=== PATIENT | female | born 1950 | race Caucasian/White ===

== ENCOUNTER → 2017-09-08 14:31 | Outpatient (CLI) | payer MEDICARE, SELFPAY | PROVIDERS: Family Provider Family Medicine; PCP Family Medicine; Visit Provider Family Medicine | DX: N39.0 Urinary tract infection, site not specified (principal) | CPT/HCPCS: 87086; 87088 ==

== ENCOUNTER 2017-10-09 05:16 | Emergency (ER) | payer MEDICARE, SELFPAY ==
[2017-10-09 05:17] VITALS: BP 166/90; PULSE 81; RESP 20; TEMP 36.7; O2SAT 99; BMI 30.7
--- NOTE | 2017-10-09 05:22 | CT_ITS ---
STUDY: CT ABDOMEN AND PELVIS WITHOUT CONTRAST REASON FOR EXAM: Female, 67 years old. Nausea and vomiting. Emesis for one day. History of gastroparesis. RADIATION DOSAGE (If Supplied By Facility): CTDIvol = ( 9.30 ) mGy, DLP = ( 478.66 ) mGycm TECHNIQUE: Transaxial images were obtained from the dome of the diaphragm to the symphysis pubis without oral contrast, and without intravenous contrast. Sagittal and coronal images were reconstructed. Individualized dose optimization techniques were used for this CT. COMPARISON: None. FINDINGS: There is a small emphysematous bulla in the visualized right lower lobe. The visualized portions of the heart are within normal limits. There is decreased attenuation of the liver consistent with steatosis. There are surgical clips in the gallbladder fossa consistent with a prior cholecystectomy. Normal spleen. Normal pancreas. Normal bilateral adrenal glands. Normal right kidney. Normal left kidney. There is a small hiatal hernia. As seen on axial images 12-22, there is a 2.2 cm soft tissue structure within the hiatal hernia which might represent a prominent fold or a polypoid mass. The remainder of the stomach is grossly normal in appearance, with no abnormal distention. Normal small intestine. Normal colon. There is non-visualization of the appendix. There is no evidence for appendicitis. There is diffuse atherosclerotic calcification of the abdominal aorta, without a demonstrated aneurysm. Normal inferior vena cava. Normal retroperitoneum. Normal urinary bladder. Normal abdominal wall. There are mild degenerative changes of the visualized lumbar spine. CT/Abdomen/Pelvis without Cont IMPRESSION: Small hiatal hernia. Thickened rugal folds versus polypoid mass in the herniated portion of the stomach. Suggest upper endoscopy for further evaluation. Previous cholecystectomy. Fatty liver. Atherosclerosis. No evidence for bowel obstruction or ileus. No evidence for appendicitis or diverticulitis. Electronically Signed: Thuan Hathaway MD at 7:07 EDT , Service support ,
--- NOTE | 2017-10-09 05:24 | ED.DCSUM_ITS ---
- ER Visit Summary Date of Service: 10/09/17 Chief Complaint: Vomiting History of Present Illness: The patient is a 67 F who complains of vomiting. This started yesterday. She has vomited multiple times at home. She contributed to her history of gastroparesis. She also complains of some epigastric abdominal pain. It is aching in nature. She denies diarrhea or urinary symptoms. She has not had a fever. She states that she normally takes promethazine, lorazepam and Percocet for her gastroparesis has not taken the promethazine because she planned on going to work today. She had a colonoscopy palpated in the last 6 months which showed no acute abnormalities. She has been seeing a surgeon about her gastroparesis but he referred her to GI doctor at a larger facility because he was unable to find a cause of her symptoms. Physical Examination: Vital signs reviewed. HEENT exam unremarkable. Heart is regular rate and rhythm without murmurs. Lungs are clear to auscultation. Abdomen is soft with tenderness in the epigastric area. Extremities reveal no edema. Skin exam normal. Neurologic exam normal. Test Results: Labs unremarkable except for WBC 12.3 Emergency Department Course and Treatment: Patient was given normal saline and phenergan. She complained of dizziness so she was given meclizine as well. Treatment Plan: DC to home to use home medications. This is likely a flare of her gastroparesis Disposition: Discharge Impression: Vomiting, Dizziness This note was generated with [employer] dictation software. It may contain incorrect words, spelling, and punctuation that were not noted in review of the chart prior to signing ED Disposition - Plan for ED Patient: Disposition: Home or Assisted Living Chief Complaint: Nausea/Vomiting Instructions: ED Nausea Vomiting Prescriptions: Meclizine HCl [Antivert] 25 mg PO TID PRN PRN #20 tab PRN Reason: Dizziness Referrals: Nils Esparza MD [Primary Care Provider] -
[2017-10-09] MEDS: 0.9% Normal Saline 1,000 ML 1000 ML IV (05:27)
[2017-10-09] MEDS: DiphenhydrAMINE 50 MG/ML Syringe 25 MG IV (05:28)
[2017-10-09] MEDS: proMETHazine 25 MG/ML Syringe 12.5 MG IV (05:30)
[2017-10-09 05:31] LABS: Absolute Lymphocyte Count 2.07 X10^3/ul (0.83-4.51); Absolute Neutrophil Count 9.3 X10^3/uL (2.0-7.7); Basophil# 0.05 X10^3/uL; Basophil% 0.4 % (0-1); Eosinophil# 0.11 X10^3/uL; Eosinophils% 0.9 % (0-5); Lymphocyte # 2.07 X10^3/ul (4.0); Lymphocyte % 16.8 % (19-41); Mean Corp Hgb Conc 34.9 g/gl (32-36); Mean Corpuscular Hgb 32.7 pg (27.0-32.0); Mean Corpuscular Volume 93.7 fL (81-99); Mean Platelet Vol. 9.9 fl (6.2-12.0); Monocyte# 0.75 X10^3/uL; Monocyte% 6.1 % (0-10); Neutrophil # 9.32 X10^3/uL (2.7-7.7); Neutrophil % 75.6 % (47-70); Platelet Count 283 K/mm3 (150-450); RBC Distribution Width CV 12.2 % (11.6-14.6); RBC Distribution Width SD 41.3 fl (35.1-43.9); Red Blood Count 4.59 M/mm3 (4.2-5.4); White Blood Count 12.3 K/mm3 (4.4-11.0)
[2017-10-09 05:33] LABS: POSITIVE COUNT NO; POSITIVE DIFFERENTIAL NO; POSITIVE MORPHOLOGY NO
[2017-10-09 06:00] LABS: ALB/GLOB Ratio 1.1 RATIO (0.9-2.4); AST(SGOT) 26 U/L (15-37); Alanine Aminotransfer ALT/SGPT 32 U/L (13-56); Alkaline Phosphatase 143 U/L (45-117); Anion Gap 10 (5-15); BUN 9 mg/dL (7-18); BUN/Creat Ratio 12.2 RATIO (10-20); Calcium,Total 8.9 mg/dL (8.5-10.1); Chloride 104 mmol/L (98-107); Creatinine, Serum 0.74 mg/dL (0.55-1.02); EST Glomerular Filtration Rate 83 mL/min (>60); Est Glom Filt Rate - Afr Amer 101 mL/min (>60); Globulin 3.8 g/dL (2.2-4.2); Glucose 165 mg/dL (74-106); Lipase 96 U/L (73-393); Potassium 4.1 mmol/L (3.5-5.1); Protein, Total 7.8 g/dL (6.4-8.2); Sodium Level 140 mmol/L (136-145)
--- NOTE | 2017-10-09 06:36 | ED.DEP ---
ED Disposition - Plan for ED Patient: Disposition: Home or Assisted Living Chief Complaint: Nausea/Vomiting Instructions: ED Nausea Vomiting Referrals: Nils Esparza MD [Primary Care Provider] -
--- NOTE | 2017-10-09 06:53 | NURSING ---
no old ekgs
[2017-10-09] MEDS: Meclizine 12.5 MG Tablet 25 MG PO (07:14)
--- NOTE | 2017-10-09 07:32 | ED.DEP ---
ED Disposition - Plan for ED Patient: Disposition: Home or Assisted Living Chief Complaint: Nausea/Vomiting Instructions: ED Nausea Vomiting Prescriptions: Meclizine HCl [Antivert] 25 mg PO TID PRN PRN #20 tab PRN Reason: Dizziness Referrals: Nils Esparza MD [Primary Care Provider] -
== END 2017-10-09 07:47 | disposition home or self-care (01) ==
PROVIDERS: Emergency Medicine; Emergency Provider Emergency Medicine; Family Provider Family Medicine; PCP Family Medicine
DX: R11.2 Nausea with vomiting, unspecified (principal); R10.13 Epigastric pain; R42 Dizziness and giddiness; K31.84 Gastroparesis; K44.9 Diaphragmatic hernia without obstruction or gangrene; I10 Essential (primary) hypertension; Z79.899 Other long term (current) drug therapy
CPT/HCPCS: 74176; 80053; 83690; 85025; 96361; 96374; 96375; 99285; J7030; A4216

== ENCOUNTER 2018-01-15 12:14 | Emergency (ER) | payer MEDICARE, SELFPAY ==
[2018-01-15 12:15] VITALS: BP 173/101; PULSE 84; RESP 16; TEMP 36.6; O2SAT 98; BMI 29.9
--- NOTE | 2018-01-15 12:32 | RAD_ITS ---
STUDY: X-RAY - RIGHT WRIST REASON FOR EXAM: Female, 67 years old. Pain and soft tissue swelling following a fall. TECHNIQUE: 3 view(s) of the wrist were obtained. COMPARISON: None. FINDINGS: Normal visualized distal radius and ulna. Normal radiocarpal articulation. Normal distal radioulnar articulation. Normal carpal bones. Normal carpal articulations. Normal carpometacarpal articulation of the thumb. Normal second through fifth carpometacarpal articulations. Normal visualized metacarpal bones. Soft tissue swelling. RAD/Wrist min 3 Views IMPRESSION: Soft tissue swelling. Electronically Signed: Rene Kelly MD at 13:10 EDT Tel [phone], Service support ,
--- NOTE | 2018-01-15 13:19 | ED.VISSUMM ---
- ER Visit Summary Date of Service: 01/15/18 Chief Complaint: Wrist wrist injury History of Present Illness: The patient is a 67 F who states that today she sustained a fall causing abrasion to the right knee and pain in the right wrist. The patient denies any other injuries. Physical Examination: Afebrile vital signs stable There is superficial abrasions to the right knee. There is no swelling of the knee joint or ecchymosis. Left wrist shows swelling over the distal radius. There is painful supination and pronation. No obvious deformity. Neurovascular intact distally. Test Results: X-rays of the right wrist were negative for fracture. Emergency Department Course and Treatment: Patient be treated with a Velcro splint as a sprain. She will do local wound care to the knee. Follow-up 10-14 days if not improved. Impression: 1. Right wrist sprain 2. Right knee abrasion This note was generated with [employer] dictation software. It may contain incorrect words, spelling, and punctuation that were not noted in review of the chart prior to signing ED Disposition - Plan for ED Patient: Disposition: Home or Assisted Living Chief Complaint: Fall Instructions: ED Abrasion, ED Sprain Wrist Referrals: Nils Esaprza MD [Primary Care Provider] - 10-14 Days if not better
[2018-01-15 13:32] VITALS: BP 140/97; PULSE 82; RESP 18
== END 2018-01-15 13:39 | disposition home or self-care (01) ==
PROVIDERS: Emergency Provider Emergency Medicine; Family Provider Family Medicine; PCP Family Medicine
DX: S63.501A Unspecified sprain of right wrist, initial encounter (principal); S80.211A Abrasion, right knee, initial encounter; W19.XXXA Unspecified fall, initial encounter; Y93.9 Activity, unspecified; Y92.9 Unspecified place or not applicable; I10 Essential (primary) hypertension; Z79.899 Other long term (current) drug therapy
CPT/HCPCS: 73110; 99283

== ENCOUNTER → 2018-01-18 15:21 | Outpatient (CLI) | payer MEDICARE, SELFPAY ==
--- NOTE | 2018-01-18 15:24 | RAD_ITS ---
STUDY: X-RAY - RIGHT WRIST REASON FOR EXAM: Female, 67 years old. Worsening pain since recent fall. TECHNIQUE: 3 view(s) of the wrist were obtained. COMPARISON: None. FINDINGS: Normal visualized distal radius and ulna. Normal radiocarpal articulation. Normal distal radioulnar articulation. Normal carpal bones. Normal carpal articulations. Normal carpometacarpal articulation of the thumb. Normal second through fifth carpometacarpal articulations. Normal visualized metacarpal bones. Soft tissue swelling. RAD/Wrist min 3 Views IMPRESSION: Soft tissue swelling. No fracture is seen. Electronically Signed: Rene Kelly MD at 15:38 EDT Tel [phone], Service support ,
== END ==
PROVIDERS: Family Provider Family Medicine; PCP Family Medicine; Visit Provider Family Medicine
DX: S69.91XA Unspecified injury of right wrist, hand and finger(s), initial encounter (principal)
CPT/HCPCS: 73110

== ENCOUNTER → 2018-08-27 13:35 | Outpatient (CLI) | payer MEDICARE, SELFPAY ==
[2018-08-27 15:37] LABS: Absolute Lymphocyte Count 2.18 X10^3/ul (0.83-4.51); Absolute Neutrophil Count 2.7 X10^3/uL (2.0-7.7); Basophil# 0.02 X10^3/uL; Basophil% 0.4 % (0-1); Eosinophil# 0.17 X10^3/uL; Hematocrit 40.3 % (37-47); Hemoglobin 13.9 g/dl (12.0-15.0); Lymphocyte # 2.18 X10^3/ul (4.0); Lymphocyte % 39.1 % (19-41); Mean Corp Hgb Conc 34.5 g/gl (32-36); Mean Corpuscular Hgb 32.3 pg (27.0-32.0); Mean Corpuscular Volume 93.7 fL (81-99); Mean Platelet Vol. 10.8 fl (6.2-12.0); Monocyte# 0.52 X10^3/uL; Monocyte% 9.3 % (0-10); Neutrophil # 2.66 X10^3/uL (2.7-7.7); Neutrophil % 47.7 % (47-70); Platelet Count 274 K/mm3 (150-450); RBC Distribution Width CV 12.2 % (11.6-14.6); White Blood Count 5.6 K/mm3 (4.4-11.0)
[2018-08-27 15:38] LABS: POSITIVE COUNT NO; POSITIVE DIFFERENTIAL NO; POSITIVE MORPHOLOGY NO
[2018-08-27 16:14] LABS: AST(SGOT) 16 U/L (15-37); Alanine Aminotransfer ALT/SGPT 24 U/L (13-56); Albumin, Serum 3.8 g/dL (3.2-5.0); Alkaline Phosphatase 113 U/L (45-117); Anion Gap 10 (5-15); BUN 12 mg/dL (7-18); BUN/Creat Ratio 18.1 RATIO (10-20); Calcium,Total 8.3 mg/dL (8.5-10.1); Chloride 106 mmol/L (98-107); Creatinine, Serum 0.66 mg/dL (0.55-1.02); EST Glomerular Filtration Rate 94 mL/min (>60); Est Glom Filt Rate - Afr Amer 113 mL/min (>60); Ferritin 50 ng/mL (8-252); Globulin 3.7 g/dL (2.2-4.2); Glucose 89 mg/dL (74-106); Iron 77 ug/dL (50-170); Potassium 3.4 mmol/L (3.5-5.1); Protein, Total 7.5 g/dL (6.4-8.2); Sodium Level 143 mmol/L (136-145)
== END ==
PROVIDERS: Family Provider Family Medicine; PCP Family Medicine; Visit Provider Family Medicine
DX: E78.5 Hyperlipidemia, unspecified (principal); K76.0 Fatty (change of) liver, not elsewhere classified; I10 Essential (primary) hypertension
CPT/HCPCS: 36415; 80053; 82728; 83540; 84443; 85025

== ENCOUNTER → 2018-10-08 14:37 | Outpatient (CLI) | payer MEDICARE, SELFPAY ==
--- NOTE | 2018-10-08 14:40 | BI_ITS ---
MAMMOGRAPHY - BILATERAL SCREENING 3-D FARHNA SYNTHESIS REASON FOR EXAM: Female, 68 years old. Bilateral Screening 3-D tomosynthesis PERTINENT HISTORY: History of left excisional biopsy at age 16. TECHNIQUE: 2-D mammograms and 3-D Farhan synthesis of the breast (s) were performed. CAD was performed. COMPARISON: July 14, 2017, April 19, 2015 FINDINGS: The breast composition is almost entirely fat. Scattered benign calcifications are seen. No dense spiculated masses or suspicious microcalcifications are identified. No architectural distortion is identified. There is no skin thickening or retraction. There has been no significant change since the prior study. BI/SCREENING MAMM (CAD), BILAT IMPRESSION: No mammographic signs of malignancy. Routine yearly mammograms recommended. ASSESSMENT CATEGORY: BIRADS Category 2: Benign. A letter regarding these results will be sent to the patient by the facility within 30 days. FOLLOW UP RECOMMENDATION: Yearly follow up mammogram recommended. (A) Approximately 10% of breast cancers are not detected by mammography. A normal mammogram should not delay biopsy of a clinically suspicious abnormality. Electronically Signed: Noel Saul MD at 17:41 EDT , Service support ,
== END ==
PROVIDERS: Family Provider Family Medicine; PCP Family Medicine; Visit Provider Family Medicine
DX: Z12.31 Encounter for screening mammogram for malignant neoplasm of breast (principal)
CPT/HCPCS: 77063; 77067

== ENCOUNTER → 2020-08-29 13:54 | Outpatient (CLI) | payer MEDICARE, SELFPAY ==
[2020-08-29 15:18] LABS: Absolute Lymphocyte Count 2.17 X10^3/uL (0.83-4.51); Basophil# 0.05 X10^3/uL; Basophil% 0.7 % (0-1); Eosinophils% 1.4 % (0-5); Hematocrit 43.5 % (37-47); Hemoglobin 14.9 g/dL (12.0-15.0); Lymphocyte # 2.17 X10^3/ul (4.0); Mean Corp Hgb Conc 34.3 g/dL (32-36); Mean Corpuscular Volume 93.5 fL (81-99); Mean Platelet Vol. 10.8 fl (6.2-12.0); Monocyte# 0.62 X10^3/uL; Monocyte% 8.9 % (0-10); NRBC Flagged by Analyzer 0 % (0-5); Neutrophil # 4.02 X10^3/uL (2.7-7.7); Neutrophil % 57.6 % (47-70); Platelet Count 257 K/mm3 (150-450); RBC Distribution Width CV 11.8 % (11.6-14.6); RBC Distribution Width SD 40.3 fl (35.1-43.9); Red Blood Count 4.65 M/mm3 (4.2-5.4)
[2020-08-29 15:48] LABS: Microalbumin,Random Urine 10.3 mg/L (NO RANGE EST.); Microalbumin:Creatinine Ratio 9.5 mg/g CRE (<30 mg/g CRE)
[2020-08-29 16:14] LABS: ALB/GLOB Ratio 1.1 RATIO (0.9-2.4); AST(SGOT) 22 U/L (15-37); Alanine Aminotransfer ALT/SGPT 31 U/L (13-56); Albumin, Serum 4.2 g/dL (3.2-5.0); Alkaline Phosphatase 132 U/L (45-117); Anion Gap 5 (5-15); BUN 15 mg/dL (7-18); BUN/Creat Ratio 18.8 RATIO (10-20); Calcium,Total 9.3 mg/dL (8.5-10.1); Chloride 103 mmol/L (98-107); Cholesterol 264 mg/dL (200); EST Glomerular Filtration Rate 75 mL/min (>60); Est Glom Filt Rate - Afr Amer 91 mL/min (>60); Globulin 3.9 g/dL (2.2-4.2); Glucose 84 mg/dL (74-106); High Density Lipoprotein 64 mg/dL; Potassium 3.3 mmol/L (3.5-5.1); Protein, Total 8.1 g/dL (6.4-8.2); Sodium Level 139 mmol/L (136-145); Thyroid Stim Hormone (TSH) 0.76 uIU/mL (0.358-3.74); Triglycerides 132 mg/dL; Very Low Density Lipoprotein 26 mg/dL (5-40)
== END ==
PROVIDERS: PCP Family Medicine; Visit Provider Family Medicine
DX: I10 Essential (primary) hypertension (principal); E78.5 Hyperlipidemia, unspecified; K76.0 Fatty (change of) liver, not elsewhere classified
CPT/HCPCS: 36415; 80053; 80061; 82043; 82570; 84439; 84443; 85025

== ENCOUNTER → 2020-09-17 13:16 | Outpatient (CLI) | payer MEDICARE, SELFPAY ==
--- NOTE | 2020-09-17 13:20 | BI_ITS ---
MAMMOGRAPHY - BILATERAL SCREENING REASON FOR EXAM: Female, 70 years old. Routine annual screening examination. PERTINENT HISTORY: Aunt with breast cancer. Remote left excisional breast biopsy. TECHNIQUE: Digital bilateral breast farhan (3D mammographic acquisition) in the CC and MLO projections. 2-D mediolateral oblique (MLO) and craniocaudad (CC) views of both breasts were obtained. CAD: Full Field Digital Mammography with Computer Added Detection was performed. COMPARISON: Comparison is made with prior study dated 10/08/2018 and 07/14/2017. FINDINGS: Breast Composition: There are scattered areas of fibroglandular density. There are no dominant masses or suspicious calcifications. No other significant abnormalities are identified. There has been no significant change since the prior study. BI/SCRN MAMM (CAD)W/FARHAN BILAT IMPRESSION: Stable bilateral screening mammogram. Yearly follow-up mammogram recommended. (A) ASSESSMENT CATEGORY: BIRADS Category 1: Negative. A letter regarding these results will be sent to the patient by the facility within 30 days. Approximately 10% of breast cancers are not detected by mammography. A normal mammogram should not delay biopsy of a clinically suspicious abnormality. [id number] Electronically Signed: Rene Kelly MD at 14:00 EST , Service support ,
== END ==
PROVIDERS: PCP Family Medicine; Referring Provider Family Medicine; Visit Provider Family Medicine
DX: Z12.31 Encounter for screening mammogram for malignant neoplasm of breast (principal)
CPT/HCPCS: 77063; 77067

== ENCOUNTER 2021-09-23 15:14 | Outpatient (CLI) | payer MEDICARE, SELFPAY ==
--- NOTE | 2021-09-23 15:17 | BI_ITS ---
MAMMOGRAPHY - BILATERAL SCREENING REASON FOR EXAM: Female, 71 years old. Routine annual screening examination. PERTINENT HISTORY: Aunt with breast cancer. Remote left excisional breast biopsy. TECHNIQUE: Digital bilateral breast farhan (3D mammographic acquisition) in the CC and MLO projections. 2-D mediolateral oblique (MLO) and craniocaudad (CC) views of both breasts were obtained. CAD: Full Field Digital Mammography with Computer Added Detection was performed. COMPARISON: Comparison is made with prior study dated 09/17/2020 and 10/08/2018. FINDINGS: Breast Composition: There are scattered areas of fibroglandular density. There are no dominant masses or suspicious calcifications. No other significant abnormalities are identified. There has been no significant change since the prior study. BI/SCRN MAMM (CAD)W/FARHAN BILAT IMPRESSION: Stable bilateral screening mammogram. Yearly follow-up mammogram recommended. (A) ASSESSMENT CATEGORY: BIRADS Category 1: Negative. A letter regarding these results will be sent to the patient by the facility within 30 days. Approximately 10% of breast cancers are not detected by mammography. A normal mammogram should not delay biopsy of a clinically suspicious abnormality. [id number] Electronically Signed: Rene Kelly MD at 15:51 EST ,
== END 2021-09-23 23:59 | disposition home or self-care (01) ==
LOC: OPBI 15:15
PROVIDERS: PCP Family Medicine; Referring Provider Family Medicine; Visit Provider Family Medicine
DX: Z12.31 Encounter for screening mammogram for malignant neoplasm of breast (principal)
CPT/HCPCS: 77063; 77067

== ENCOUNTER → 2022-10-03 | Outpatient (CLI) | payer MEDICARE, SELFPAY ==
--- NOTE | 2022-10-03 12:27 | BI_ITS ---
MAMMOGRAPHY - BILATERAL SCREENING 3-D TOMOSYNTHESIS REASON FOR EXAM: Female, 72 years old. Routine screening PERTINENT HISTORY: Aunt with breast cancer.. TECHNIQUE: 2-D mammograms and 3-D Tomosynthesis of the breast (s) were performed. CAD was performed. COMPARISON: 09/23/2021 FINDINGS: The breast composition is composed of scattered fibroglandular density. Scattered benign calcifications are seen. No dense spiculated masses or suspicious microcalcifications are identified. No architectural distortion is identified. There is no skin thickening or retraction. There has been no significant change since the prior study. BI/SCRN MAMM (CAD)W/FARHAN BILAT IMPRESSION: No mammographic signs of malignancy. Routine yearly mammograms recommended. ASSESSMENT CATEGORY: BIRADS Category 1: Negative. A letter regarding these results will be sent to the patient by the facility within 30 days. FOLLOW UP RECOMMENDATION: Yearly follow up mammogram recommended. (A) Approximately 10% of breast cancers are not detected by mammography. A normal mammogram should not delay biopsy of a clinically suspicious abnormality. Electronically Signed: Mitesh Brito MD at 13:18 EDT ,
== END | disposition home or self-care (01) ==
LOC: OPBI 12:25
PROVIDERS: PCP Family Medicine; Referring Provider Family Medicine; Visit Provider Family Medicine
DX: Z12.31 Encounter for screening mammogram for malignant neoplasm of breast (principal); Z80.3 Family history of malignant neoplasm of breast
CPT/HCPCS: 77063; 77067

== ENCOUNTER → 2022-11-20 | Outpatient (CLI) | payer MEDICARE, SELFPAY ==
[2022-11-20 10:27] LABS: Absolute Lymphocyte Count 2.03 X10^3/uL (0.83-4.51); Absolute Neutrophil Count 2.5 X10^3/uL (2.0-7.7); Basophil# 0.02 X10^3/uL; Basophil% 0.4 % (0-1); Eosinophils% 1.9 % (0-5); Hemoglobin 14.6 g/dL (12.0-15.0); Lymphocyte # 2.03 X10^3/ul (0.83-4.51); Lymphocyte % 39.4 % (19-41); Mean Corpuscular Hgb 31.4 pg (27.0-32.0); Mean Corpuscular Volume 92.5 fL (81-99); Mean Platelet Vol. 10.8 fl (6.2-12.0); Monocyte# 0.47 X10^3/uL; Monocyte% 9.1 % (0-10); NRBC Flagged by Analyzer 0 % (0-5); Neutrophil # 2.51 X10^3/uL (2.7-7.7); Neutrophil % 48.8 % (47-70); Platelet Count 235 K/mm3 (150-450); RBC Distribution Width SD 40.6 fl (35.1-43.9); Red Blood Count 4.65 M/mm3 (4.2-5.4); White Blood Count 5.2 K/mm3 (4.4-11.0)
[2022-11-20 11:25] LABS: AST(SGOT) 20 U/L (15-37); Alanine Aminotransfer ALT/SGPT 37 U/L (13-56); Albumin, Serum 3.7 g/dL (3.2-5.0); Alkaline Phosphatase 92 U/L (45-117); Anion Gap 10 (5-15); BUN 22 mg/dL (7-18); Calcium,Total 9.6 mg/dL (8.5-10.1); Chloride 104 mmol/L (98-107); Cholesterol 231 mg/dL (200); EST Glomerular Filtration Rate 58 mL/min (>60); Est Glom Filt Rate - Afr Amer 70 mL/min (>60); Globulin 3.6 g/dL (2.2-4.2); Glucose 109 mg/dL (74-106); High Density Lipoprotein 61 mg/dL; Potassium 3.4 mmol/L (3.5-5.1); Protein, Total 7.3 g/dL (6.4-8.2); Sodium Level 142 mmol/L (136-145); Triglycerides 85 mg/dL; Very Low Density Lipoprotein 17 mg/dL (5-40)
== END | disposition home or self-care (01) ==
LOC: BFHLAB 08:52
PROVIDERS: PCP Nurse Practitioner Family; Referring Provider Nurse Practitioner Family; Visit Provider Nurse Practitioner Family
DX: Z00.00 Encounter for general adult medical examination without abnormal findings (principal); E78.5 Hyperlipidemia, unspecified; I10 Essential (primary) hypertension
CPT/HCPCS: 36415; 80053; 80061; 85025

== ENCOUNTER 2022-12-19 09:24 | Day surgery (SDC) | payer MEDICARE, SELFPAY ==
[2022-12-19 09:55] VITALS: BP 153/92; PULSE 63; RESP 16; TEMP 36.6; O2SAT 99; BMI 26.4
[2022-12-19] MEDS: Lactated Ringers 1,000 ML 15 ML IV (10:02)
--- NOTE | 2022-12-19 10:30 | COLBX_PTH ---
PATIENT: JARRED LARA LOC: EN U#:[id number] AGE/SX: 72/F ROOM: RE12/19/[address]: Dr. Mikey Catalan MD : 1950 BED: DIS: 12/19/2022 SPEC #: [id number] RECD: 12/19/22 15:19 STATUS: SUZETTE HINDSRacquel #: [id number] NASH: 12/19/22 10:[address]: Mikey Catalan DEPT: SURGICAL PATHOLOGY RECD BY: Jocelyn Cee ENTERED: 12/22/22 08:53 SP TYPE: COLON BX OTHR DR: Diane Deluca, COMPUTER SYSTEMS DESIGN ANALYST-C Tissues: A - Transverse colon B - Cecum, NOS Procedures: Surgery Specimen Level IV HEADER OPERATION: Colonoscopy ? open access (MAC), polypectomy and biopsies PRE-OP DIAGNOSIS: History of polyps TISSUE SUBMITTED: A ? Transverse colon polyp, proximal, B ? Cecum polyp MICROSCOPIC DIAGNOSIS A. Transverse colon polyp, biopsy: Tubular adenoma. B. Cecal polyp, biopsy: Fragments of tubular adenoma. AM:neyda 12/23/2022 MICROSCOPIC DESCRIPTION Slides are reviewed. GROSS DESCRIPTION A - Received in fixative is one container labeled with the patient's name and designated transverse colon polyp proximal. The specimen consists of two irregular fragments of light hines soft tissue that in aggregate measure 0.4 x 0.2 x 0.1 cm. The specimen is totally submitted in one cassette. B - Received in fixative is one container labeled with the patient's name and designated cecum polyp. The specimen consists of hines-pink polyp measuring 0.6 x 0.5 x 0.3 cm. Also present in the container are multiple fragments of hines soft tissue measuring in aggregate 0.5 x 0.2 x 0.1 cm. The entire specimen is submitted in one cassette. / SJ:neyda 12/22/2022 TC:5 CPT: 35172 x2
--- NOTE | 2022-12-19 11:24 | H&P.OPEN ---
[facility] - General General Date of Service: 12/19/22 Chief Complaint: Colon Cancer screening [facility] Narrative JARRED LARA, is a 72 F who presents screening colonoscopy. She confirms her preappointment questionnaire that she has not experienced any change in her bowel habits-and particularly denies any notice of blood. She confirms a history of polyps remotely had a colonoscopy in 1994, but none in 2 interval colonoscopies. She also reports a family history of colon cancer in a maternal uncle and a maternal grandfather (the former was diagnosed in his 80s). Lastly she confirms that her prep was completed successfully and that her output is now clear. [facility] Medical History (Updated 12/16/22 @ 13:22 by Apryl Bourne) Diarrhea, unspecified Fatty liver Former smoker Gastroparesis Gastroparesis High cholesterol History of stress test HTN (hypertension) Hyperlipidemia Obesity (BMI 30.0-34.9) Peptic ulcer Reflux esophagitis surgical history of hiatal hernia Wears glasses Home Medications amlodipine 2.5 mg tablet 10 mg PO DAILY 10/04/14 [History Last Taken 01/15/18] lorazepam 1 mg tablet 1 mg PO BID PRN PRN Anxiety 07/10/17 [History Last Taken Unknown] Allergy/AdvReac Type Severity Reaction Status Date / Time atenolol Allergy Mild Bradycardia Verified 12/19/22 09:55 amoxicillin Allergy Rash Verified 12/19/22 09:55 codeine AdvReac Nausea Verified 12/19/22 09:55 Family History (Updated 11/28/22 @ 16:04 by Letitia Augustin) Mother Heart disease Cancer Hypertension Father Heart disease Aunt Colon cancer Heart disease CVA (cerebral vascular accident) Breast cancer Uncle Colon cancer Grandfather Cancer of alimentary canal/tract Surgical History (Updated 12/16/22 @ 13:22 by Apryl Bourne) History of cholecystectomy History of esophagogastroduodenoscopy (EGD) (~07/28/17) History of fundoplication (~2014) History of [employer] fundoplication History of repair of hiatal hernia (~2014) S/P colonoscopy (~07/28/17) Social History (Updated 11/28/22 @ 16:05 by Letitia Augustin) current occupational status: employed Smoking Status: Former smoker alcohol intake: current alcohol intake frequency: holidays/special occasions only Past Medical/Surgical History Planned Operation Planned Operative Procedure/s: CSCOPE S.O.S: No Previous Hospitalizations/Surgeries HX Hospitalizations: No HX of Surgeries: JEHOVAH WITNESS-NO BLOOD TRANSFUSION Any Problems With Anesthesia: No You/Your Family Experience Fever (Hyperthermia) With Anes: No Cholinesterase deficiency: No Cardiovascular Hx Chest Pain within Last 2 months: No Hx of Irregular Heartbeat and/or Afib: Yes Hx Heart Attack: No Hx Congestive Heart Failure: No Hx Rheumatic Fever: No Hx Hypertension: Yes (CONTROLLED WITH MED) Hx Internal Defibrillator: No Hx Pacemaker: No Hx Cardiac Catheterization: No Hx Cardiac Surgery/Stents/Etc.: No Hx Stress Test: No Hx Pain in Legs when Walking/Leg Cramps: No Respiratory Chronic Cough: No HX of Shortness of Breath: Yes Hoarseness: No Hx Chronic Obstructive Pulmonary Disease (COPD): No Hx Asthma: Yes Hx Emphysema: No Hx Sleep Apnea: No Hx Respiratory Tract Infection/Cold (presently): No Do You Snore Loudly (louder than talking or can be heard): No Do You Often Feel Tired/ Fatigued/ Sleepy Dring Daytime?: No Has Anyone Observed You Stop Breathing During Sleep?: No Result (for STOP score): Negative Hx Smoking: Yes (1973) Smoking Status: Former smoker Gastrointestinal Hx Gastroesophageal Reflux: Yes Controlled With Meds: Yes Hx Gastrointestinal Disorders: Yes (gastroparesis/ diarrhea) Hx Gastrointestinal Bleed: No Hx Ulcer: No Hx Hiatal Hernia: Yes (HH repair) Difficulty Chewing/Swallowing: No Special diet followed at home: No Hx Unplanned Weight Loss of 20#: No HX Unplanned Weight Gain of 20#: No Neurological Hx Seizures: No HX Syncope/Blackout Spells/Unconsciousness: No Hx Transient Ischemic Attacks (TIA): No Hx Multiple Sclerosis: No Hx Parkinson's Disease: No Hx Head/Neck Injury: No Hx Headaches: No Hx Back Injury/Pain: No Recent Onset of Speech Difficulty: No Restless Legs: No Does patient have nerve stimulator: No Blood Disorder Hx Leukemia: No Bleeding Tendencies: No Hx Deep Vein Thrombosis: No Hx High Cholesterol: No Blood Transmitted Disease: No Hx Hepatitis: No Hx Cirrhosis: No Hx Anemia: Yes Hx Blood Disorders: No Reproduction Are You Post Menopause: Yes Genitourinary Hx Renal Disease: No Musculoskeletal Hx Arthritis: No Hx Rheumatoid Arthritis: No Hx Gout: No Recent Onset of an Orthopedic Problem: No Endocrine Hx Diabetes: No Thyroid Disease: No Hx Steroid Therapy: No Psycho/Social Hx Substance Use: No Hx Alcohol Use: No Hx Anxiety: Yes Hx Depression: No Mental Illness: No Hx Dementia: No Miscellaneous Hx Cancer: No Recent Exposure to Contagious Disease: No Hx of C-Diff: Yes (in the ) Any Loose Teeth: No Allergies atenolol Allergy (Mild, Verified 12/19/22 09:55) Bradycardia Bradycardia amoxicillin Allergy (Verified 12/19/22 09:55) Rash codeine Adverse Reaction (Verified 12/19/22 09:55) Nausea Discharge Is Pt Admitted From a Fpc, or a Nursing Home: No After D/C, Where Do you Plan to Go: Return Home From the [facility] History Number of Risk Factors: 2 Vital Signs Vital Signs Vital Signs: 12/19/22 09:55 12/19/22 09:55 Temperature 97.8 F Temperature Source Temporal Pulse Rate 63 Respiratory Rate 16 Respiratory Pattern Normal Blood Pressure 153/92 H Blood Pressure Mean 112 Blood Pressure Source Monitor Blood Pressure Position Semi-Fowlers Blood Pressure Location Right Arm Pulse Ox 99 Oxygen Delivery Method Room Air Weight Weight: 154 lb 5.177 oz Body Mass Index (BMI) 26.4 Physical Exam Const alert, oriented x3 and no apparent distress General Appearance: cooperative Resp normal respiratory effort Effort and Inspection: able to speak in complete sentences GI GI Narrative: Port site scars are well-healed across the abdomen. Abdomen is nondistended. No visible herniation. Patient's abdomen is soft and nontender to palpation x4 quadrants. Assessment & Plan Assessment/Plan (1) Encounter for screening for malignant neoplasm of colon: PLAN: Patient presents today for open access colonoscopy. While she has a remote history of colonic polyps, she has not had any visualized in the past 2 prior endoscopy sessions. She denies any change to her bowel habits. Her history otherwise is suggestive of an average colon cancer risk. She confirms that she completed a prep for today's procedure and that her output is now clear. With this information, we will plan to proceed to the endoscopy suite for scheduled colonoscopy. I did review expectations for any biopsies should they be indicated and that this would be delayed by processing time into next week. Patient nor family have any further questions. Surgery Risks - Colonoscopy Risks Include but are not Limited To: Risks include but are not limited to: Bleeding, perforation requiring further surgery, inability to complete colonoscopy requiring barium enema.
[2022-12-19 12:15] VITALS: BP 134/84; BP 153/92; PULSE 61; RESP 16; TEMP 36.1; O2SAT 100
[2022-12-19 12:20] VITALS: BP 127/89; BP 153/92; PULSE 53; RESP 16; O2SAT 100
--- NOTE | 2022-12-19 12:21 | OP.COLON_ITS ---
Patient Name: Daylin Mena Procedure Date: 12/19/2022 10:24 AM Date of : 1950 Age: 72 Procedure: Colonoscopy Indications: High risk colon cancer surveillance: Personal history of colonic polyps Providers: Mikey Catalan MD Referring MD: Mikey Catalan MD Medicines: See the Anesthesia note for documentation of the administered medications Patient Profile: Refer to note in patient chart for documentation of history and physical. Last Colonoscopy: 5 years ago. Complications: No immediate complications. Estimated blood loss: Minimal. Procedure: Pre-Anesthesia Assessment: - The heart rate, respiratory rate, oxygen saturations, blood pressure, adequacy of pulmonary ventilation, and response to care were monitored throughout the procedure. After I obtained informed consent, the scope was passed under direct vision. Throughout the procedure, the patient's blood pressure, pulse, and oxygen saturations were monitored continuously. The colonoscope was introduced through the anus and advanced to the cecum, identified by the appendiceal orifice, IC valve and transillumination. The colonoscopy was performed without difficulty. The patient tolerated the procedure well. The quality of the bowel preparation was adequate. Scope In: 11:33:50 AM Scope Withdrawal Time 0 hours 21 minutes 15 seconds Scope Out: 12:07:49 PM Total Procedure Duration Time 0 hours 33 minutes 59 seconds Findings: Skin tags were found on perianal exam. A 3 mm polyp was found in the proximal transverse colon. The polyp was semi-sessile. Biopsies were taken with a cold forceps for histology. Estimated blood loss was minimal. A 3 to 5 mm polyp was found in the cecum. The polyp was semi-pedunculated. The polyp was removed with a hot snare. Resection and retrieval were complete. Estimated blood loss was minimal. The exam was otherwise without abnormality on direct and retroflexion views. A few medium-sized localized angioectasias without bleeding were found in the transverse colon. No biopsies or other specimens were collected for this exam. Two semi-sessile polyps were found in the cecum. The polyps were 2 to 3 mm in size. Biopsies were taken with a cold forceps for histology. Estimated blood loss was minimal. Impression: - Perianal skin tags found on perianal exam. - One 3 mm polyp in the proximal transverse colon. Biopsied. - One 3 to 5 mm polyp in the cecum, removed with a hot snare. Resected and retrieved. - The examination was otherwise normal on direct and retroflexion views. - A few non-bleeding colonic angioectasias. No specimens collected. - Two 2 to 3 mm polyps in the cecum. Biopsied. Recommendation: - Discharge patient to home (via wheelchair). - Resume previous diet today. - Continue present medications. - Await pathology results. - Repeat colonoscopy date to be determined after pending pathology results are reviewed for surveillance based on pathology results. - Telephone my office for pathology results in 1 week. Procedure Code(s): --- Professional --- 73410, Colonoscopy, flexible; with removal of tumor(s), polyp(s), or other lesion(s) by snare technique 97152, 59, Colonoscopy, flexible; with biopsy, single or multiple Diagnosis Code(s): --- Professional --- Z86.010, Personal history of colonic polyps D12.3, Benign neoplasm of transverse colon (hepatic flexure or splenic flexure) D12.0, Benign neoplasm of cecum K55.20, Angiodysplasia of colon without hemorrhage K64.4, Residual hemorrhoidal skin tags CPT copyright 2017 [employer]. All rights reserved. The codes documented in this report are preliminary and upon integrity specialist review may be revised to meet current compliance requirements. Mikey Catalan MD 12/19/2022 12:20:50 PM This report has been signed electronically. Number of Addenda: 0 Note Initiated On: 12/19/2022 10:24 AM
--- NOTE | 2022-12-19 12:22 | OP.CCLET_ITS ---
12/19/2022 Sherie Arizmendi Re : Colonoscopy procedure for Daylin Mena Dear Yosi This procedure was performed on Monday, December 19, 2022. My impressions and recommendations are as follows: Impressions : - Perianal skin tags found on perianal exam. - One 3 mm polyp in the proximal transverse colon. Biopsied. - One 3 to 5 mm polyp in the cecum, removed with a hot snare. Resected and retrieved. - The examination was otherwise normal on direct and retroflexion views. - A few non-bleeding colonic angioectasias. No specimens collected. - Two 2 to 3 mm polyps in the cecum. Biopsied. Recommendations : - Discharge patient to home (via wheelchair). - Resume previous diet today. - Continue present medications. - Await pathology results. - Repeat colonoscopy date to be determined after pending pathology results are reviewed for surveillance based on pathology results. - Telephone my office for pathology results in 1 week. My findings are described in the full procedure note, which is enclosed. If I can be of further assistance, please feel free to contact me at Doctor phone number(s): , Work: . Sincerely, Mikey Catalan MD 12/19/2022 12:20:50 PM This report has been signed electronically.
[2022-12-19 12:25] VITALS: BP 129/77; BP 153/92; PULSE 53; RESP 16; O2SAT 99
[2022-12-19 12:30] VITALS: BP 120/88; BP 153/92; PULSE 52; RESP 16; TEMP 36.4; O2SAT 100
[2022-12-19 13:09] VITALS: BP 153/92
== END 2022-12-19 13:12 | disposition home or self-care (01) ==
LOC: EN 09:31 → AC 09:31
PROVIDERS: PCP Nurse Practitioner Family; Referring Provider Nurse Practitioner Family; Visit Provider Surgery
PROC: 0DJD8ZZ Inspection of Lower Intestinal Tract, Via Natural or Artificial Opening Endoscopic (ICD-10-PCS; CPT 45378; principal; 2022-12-19 10:25)
DX: Z12.11 Encounter for screening for malignant neoplasm of colon (principal); Z87.891 Personal history of nicotine dependence; Z80.0 Family history of malignant neoplasm of digestive organs; K21.00 Gastro-esophageal reflux disease with esophagitis, without bleeding; I10 Essential (primary) hypertension; E78.00 Pure hypercholesterolemia, unspecified; Z86.010 Personal history of colon polyps; K64.4 Residual hemorrhoidal skin tags; D12.0 Benign neoplasm of cecum; D12.3 Benign neoplasm of transverse colon
CPT/HCPCS: 45380; 45385; 88305; J7120

== ENCOUNTER → 2023-06-24 | Outpatient (CLI) | payer MEDICARE, SELFPAY ==
[2023-06-24 15:09] LABS: Anion Gap 5 (5-15); BUN 23 mg/dL (7-18); BUN/Creat Ratio 27.2 RATIO (10-20); Calcium,Total 9.2 mg/dL (8.5-10.1); Chloride 107 mmol/L (98-107); Creatinine, Serum 0.85 mg/dL (0.55-1.02); EST Glomerular Filtration Rate 70 mL/min (>60); Est Glom Filt Rate - Afr Amer 84 mL/min (>60); Glucose 108 mg/dL (74-106); Potassium 3.5 mmol/L (3.5-5.1); Sodium Level 139 mmol/L (136-145)
== END | disposition home or self-care (01) ==
LOC: BFHLAB 11:30
PROVIDERS: PCP Nurse Practitioner Family; Visit Provider Nurse Practitioner Family
DX: N28.9 Disorder of kidney and ureter, unspecified (principal)
CPT/HCPCS: 36415; 80048

== ENCOUNTER → 2024-05-25 | Outpatient (CLI) | payer MEDICARE, SELFPAY ==
[2024-05-25 12:16] LABS: Absolute Lymphocyte Count 1.63 X10^3/uL (0.83-4.51); Absolute Neutrophil Count 2.6 X10^3/uL (2.0-7.7); Basophil# 0.03 X10^3/uL; Basophil% 0.6 % (0-1); Eosinophil# 0.11 X10^3/uL; Eosinophils% 2.3 % (0-5); Hematocrit 41.3 % (37-47); Hemoglobin 14.1 g/dL (12.0-15.0); Lymphocyte # 1.63 X10^3/ul (0.83-4.51); Lymphocyte % 33.5 % (19-41); Mean Corp Hgb Conc 34.1 g/dL (32-36); Mean Corpuscular Hgb 31.6 pg (27.0-32.0); Mean Corpuscular Volume 92.6 fL (81-99); Mean Platelet Vol. 11.2 fl (6.2-12.0); Monocyte# 0.48 X10^3/uL; Monocyte% 9.9 % (0-10); NRBC Flagged by Analyzer 0 % (0-5); Neutrophil % 53.3 % (47-70); Platelet Count 224 K/mm3 (150-450); RBC Distribution Width CV 11.8 % (11.6-14.6); RBC Distribution Width SD 39.7 fl (35.1-43.9); Red Blood Count 4.46 M/mm3 (4.2-5.4); White Blood Count 4.9 K/mm3 (4.4-11.0)
[2024-05-25 12:43] LABS: Vitamin B12 352 pg/mL (211-911); Vitamin D,25 Hydroxy 9.7 ng/mL
[2024-05-25 13:20] LABS: ALB/GLOB Ratio 1.2 RATIO (0.9-2.4); AST(SGOT) 23 U/L (15-37); Alanine Aminotransfer ALT/SGPT 35 U/L (13-56); Alkaline Phosphatase 104 U/L (45-117); Anion Gap 7 (5-15); BUN 15 mg/dL (7-18); Calcium,Total 9.2 mg/dL (8.5-10.1); Chloride 108 mmol/L (98-107); Cholesterol 240 mg/dL (200); Creatinine, Serum 0.75 mg/dL (0.55-1.02); EST Glomerular Filtration Rate 80 mL/min (>60); Est Glom Filt Rate - Afr Amer 97 mL/min (>60); Globulin 3.4 g/dL (2.2-4.2); Glucose 115 mg/dL (74-106); High Density Lipoprotein 58 mg/dL; Potassium 3.9 mmol/L (3.5-5.1); Protein, Total 7.4 g/dL (6.4-8.2); Sodium Level 141 mmol/L (136-145); T4 Free Direct 0.87 ng/dL (0.76-1.46); Triglycerides 107 mg/dL; Very Low Density Lipoprotein 21 mg/dL (5-40)
[2024-05-26 12:41] LABS: Hemoglobin A1c 5.7 % (3.8-5.6)
== END | disposition home or self-care (01) ==
LOC: BFHLAB 09:23
PROVIDERS: PCP Nurse Practitioner Family; Referring Provider Nurse Practitioner Family; Visit Provider Nurse Practitioner Family
DX: E78.5 Hyperlipidemia, unspecified (principal); I10 Essential (primary) hypertension; L65.9 Nonscarring hair loss, unspecified; E55.9 Vitamin D deficiency, unspecified; E53.8 Deficiency of other specified B group vitamins; R73.01 Impaired fasting glucose
CPT/HCPCS: 36415; 80053; 80061; 82306; 82607; 83036; 84439; 84443; 85025

== ENCOUNTER → 2024-06-07 | Outpatient (CLI) | payer MEDICARE, SELFPAY | END | disposition home or self-care (01) | LOC: OPBI 08:19 | PROVIDERS: PCP Nurse Practitioner Family; Referring Provider Nurse Practitioner Family; Visit Provider Nurse Practitioner Family | DX: Z12.31 Encounter for screening mammogram for malignant neoplasm of breast (principal) | CPT/HCPCS: 77063; 77067 ==